=== PATIENT | male | born 1950 | race Two or more races ===

== ENCOUNTER 2022-09-20 17:08 | Inpatient (IN) | payer MEDICARE ==
[~2022-09-20] VITALS: Ht 157.5 cm; Wt 72.6 kg
[2022-09-20 18:11] LABS: BASOPHILS % (AUTO) 0.5 % (0.0-2.0); EOSINOPHILS % (AUTO) 1.7 % (0.0-6.0); HEMATOCRIT 40 % (39-51); HEMOGLOBIN 13.5 g/dL (13.5-17.5); LYMPHOCYTES # (AUTO) 2.7 K/uL (0.8-4.8); LYMPHOCYTES % (AUTO) 35.3 % (20.0-44.0); MEAN CORPUSCULAR HGB CONC 34 g/dl (31.0-36.0); MEAN CORPUSCULAR VOLUME 91 fL (80-96); MONOCYTES # (AUTO) 0.6 K/uL (0.1-1.30); MONOCYTES % (AUTO) 8.3 % (2.0-12.0); NEUTROPHILS # (AUTO) 4.2 K/uL (1.8-8.9); NEUTROPHILS % (AUTO) 54.2 % (43.0-81.0); PLATELET COUNT (AUTO) 156 K/uL (150-450); RED BLOOD CELL COUNT(AUTO) 4.41 MIL/uL (4.5-6.0); WHITE BLOOD COUNT (AUTO) 7.7 K/uL (4.3-11.0)
--- NOTE | 2022-09-20 18:15 | NUR ---
RECEVED PT 72 YRS MALE FROM HOME C/O SYNCOPY AND DIZZNESS AWAKE AND ALERT NO WEEKNESS NO NUBNESS RESTING AND COMFORTBLE AT THIS TIME
--- NOTE | 2022-09-20 18:30 | NUR ---
BLOOD DROW AND SENT TO LAB
--- NOTE | 2022-09-20 19:30 | NUR ---
HAND OFF NOHEMI KHOURY
[2022-09-20] MEDS ORDERED: ACETAMINOPHEN 325 MG TABLET PO PRN (20:30)
[2022-09-20] MEDS ORDERED: ONDANSETRON HCL/PF 4 MG/2 ML VIAL IVP PRN (20:30)
[2022-09-20 21:28] LABS: ALANINE AMINOTRANSFERASE 63 U/L (12-78); ALBUMIN 3.7 g/dL (3.4-5.0); ALKALINE PHOSPHATASE 54 U/L (46-116); ASPARTATE AMINOTRANSFERASE 45 U/L (15-37); BILIRUBIN,DIRECT 0.1 mg/dL (0.0-0.2); BILIRUBIN,TOTAL 0.4 mg/dL (0.2-1.0); CARBON DIOXIDE 25 mmol/L (21-32); CHLORIDE 104 mmol/L (98-107); CREATININE 0.8 mg/dL (0.6-1.3); GLUCOSE 137 mg/dL (74-106); POTASSIUM 3.9 mmol/L (3.5-5.1); SODIUM SERUM 141 mmol/L (136-145); TOTAL PROTEIN, SERUM 7.8 g/dL (6.4-8.2); UREA NITROGEN, BLOOD 23 mg/dL (7-18)
--- NOTE | 2022-09-20 21:43 | NUR ---
REPORT GIVEN TO CANDELARIA
--- NOTE | 2022-09-20 22:25 | NUR ---
COMPLIANCE PROGRAM MANAGER ADMITTING NOTE ADMITTED A 72 YO FEMALE PATIENT FROM EMERGENCY ROOM. RECEIVED REPORT FROM PORTFOLIO DIRECTOR. PT IS ADMITTED IN ROOM 310-2, WITH DX OF SYNCOPE. PT A/O X4, ABLE TO MAKE NEEDS KNOWN, LITHUANIAN SPEAKING. ON ROOM AIR, AND TOLERATING WELL. IV ACCESS TO LEFT AC #18G, IV INTACT, AND PATENT. BODY ASSESSMENT COMPLETED. PT HAS BRUISE TO LEFT FOOT LAST TOE DUE TO FALL AT HOME, AND DISCOLORATION TO LEFT LEG. PICTURES TAKEN, AND PLACED IN CHART. BELONGINGS CHECKED, AND BELONGING LIST SIGNED. SAFETY MEASURES INITIATED: BED LOCKED AND IN LOWEST POSITION, SIDE RAILS UP X2, HOB ELEVATED. CALL LIGHT IN EASY REACH FOR HELP. WILL CONTINUE TO MONITOR.
[2022-09-20 22:30] VITALS: BP 157/67
--- NOTE | 2022-09-20 22:34 | NUR ---
PT WAS TRANSFERRED TO 310 UNDER ACLS
[2022-09-20] MEDS ORDERED: GLIP5TAB13 PO (22:36)
[2022-09-20] MEDS ORDERED: LOSA25TA27 PO (22:36)
[2022-09-20] MEDS ORDERED: ATOR20TA PO (22:36)
[2022-09-20] MEDS ORDERED: METF-881 PO (22:36)
[2022-09-20 23:16] LABS: CALCIUM, SERUM 9.1 mg/dL (8.5-10.1)
[2022-09-20] MEDS: ENOXAPARIN SODIUM 40 MG/0.4 ML DISP.SYRIN SQ SCH (23:20)
[2022-09-20] MEDS: IV NS 0.9% 1,000 ML IV PRN (23:21)
[2022-09-21] VITALS (8 sets, daily range): BP systolic 129–141; BP diastolic 59–91
--- NOTE | 2022-09-21 06:40 | NUR ---
VISUAL C DEVELOPER CLOSING NOTE LEFT PATIENT SLEEPING IN BED. PT A/O X 4, ABLE TO MAKE NEEDS KNOWN. PATIENT IS ON RA, NO RESPIRATORY DISTRESS OR SOB NOTED. PT HAS IV ACCESS TO LAC, MIDLINE, #18G, WITH NS RUNNING AT 75 ML/HR, IV SITE PATENT AND INTACT, INFUSING WELL. SAFETY MEASURES IN PLACE: BED LOCKED IN LOWEST POSITION. CALL LIGHT AND TABLE IN EASY REACH. SIDE RAILS UP X2. BED ALARM ON. WILL PT TO AM SHIFT NURSE FOR LESLEE.
[2022-09-21 06:56] LABS: BASOPHILS % (AUTO) 0.6 % (0.0-2.0); EOSINOPHILS % (AUTO) 1.9 % (0.0-6.0); HEMATOCRIT 39 % (39-51); LYMPHOCYTES # (AUTO) 2.7 K/uL (0.8-4.8); MEAN CORPUSCULAR HGB CONC 33 g/dl (31.0-36.0); MEAN CORPUSCULAR VOLUME 93 fL (80-96); MONOCYTES # (AUTO) 0.6 K/uL (0.1-1.30); MONOCYTES % (AUTO) 8.4 % (2.0-12.0); NEUTROPHILS # (AUTO) 3.6 K/uL (1.8-8.9); NEUTROPHILS % (AUTO) 51.1 % (43.0-81.0); PLATELET COUNT (AUTO) 149 K/uL (150-450); RED BLOOD CELL COUNT(AUTO) 4.25 MIL/uL (4.5-6.0); WHITE BLOOD COUNT (AUTO) 7.1 K/uL (4.3-11.0)
[2022-09-21 07:09] LABS: CALCIUM, SERUM 8.8 mg/dL (8.5-10.1); CREATININE 0.7 mg/dL (0.6-1.3); MAGNESIUM 2.1 mg/dL (1.8-2.4); PHOSPHORUS 3.4 mg/dL (2.5-4.9); POTASSIUM 3.8 mmol/L (3.5-5.1)
--- NOTE | 2022-09-21 07:30 | NUR ---
AUTOMOTIVE PARTS COUNTER PERSON OPENING NOTE RECEIVED PATIENT SLEEPING IN BED. PT A/O X 4, ABLE TO MAKE NEEDS KNOWN. PATIENT IS ON RA, NO RESPIRATORY DISTRESS OR SOB NOTED. PT HAS IV ACCESS TO LAC, MIDLINE, #18G, WITH NS RUNNING AT 75 ML/HR, IV SITE PATENT AND INTACT, INFUSING WELL. SAFETY MEASURES IN PLACE: BED LOCKED IN LOWEST POSITION. CALL LIGHT AND TABLE IN EASY REACH. SIDE RAILS UP X2. BED ALARM ON. WILL ADMINISTER MEDS PRESCRIBED.
[2022-09-21] MEDS ORDERED: DEXTROSE 50%-WATER 50 ML DISP.SYRIN IV PRN (13:00)
[2022-09-21] MEDS: BLOOD SUGAR DIAGNOSTIC 1 EACH STRIP IN SCH ×2 (17:12→21:37)
[2022-09-21] MEDS: INSULIN REGULAR, HUMAN 100 UNIT/ML 3 ML VIAL SQ PRN ×2 (17:18→22:17)
[2022-09-21] MEDS: IV NS 0.9% 1,000 ML IV PRN (18:11)
--- NOTE | 2022-09-21 18:16 | NUR ---
MILK RUNNER CLOSING NOTE PATIENT RESTING IN BED, AWAKE. PT A/O X 4, ABLE TO MAKE NEEDS KNOWN. PATIENT IS ON RA, NO RESPIRATORY DISTRESS OR SOB NOTED. PT HAS IV ACCESS TO LAC, MIDLINE, #18G, WITH NS RUNNING AT 75 ML/HR, IV SITE PATENT AND INTACT, INFUSING WELL. AMBULATORY WITH BRP. SAFETY MEASURES IN PLACE: BED LOCKED IN LOWEST POSITION. CALL LIGHT AND TABLE IN EASY REACH. SIDE RAILS UP X2. BED ALARM ON. ALL SCHEDULED MEDS GIVEN ORDERED. WILL ENDORSE TO NEXT SHIFT.
--- NOTE | 2022-09-21 19:30 | NUR ---
MORTGAGE LOAN COUNSELOR NOTES RECEIVED LYING ON BED,A/O X3,SPEAK BARBADIAN,VISITOR AT BEDSIDE.PRESENT IVF NS AT 75ML/HR RATE INFUSING ON LEFT AC, VIA IV PUMP,SITE PATENT.[id number] ON TELE MONITOR.DENIES CHEST DISCOMFORTS.FALL PRECAUTION OBSERVED,BED ON LOWEST POSITION AND LOCKED,BED ALARM TRIGGERED,CALL LIGHT IN REACH,NEEDS ANTICIPATED.
[2022-09-21] MEDS: ENOXAPARIN SODIUM 40 MG/0.4 ML DISP.SYRIN SQ SCH (20:38)
[2022-09-21] MEDS: ATORVASTATIN 10 MG TABLET PO SCH (21:36)
[2022-09-22] VITALS (7 sets, daily range): BP systolic 115–145; BP diastolic 57–80
[2022-09-22] MEDS: BLOOD SUGAR DIAGNOSTIC 1 EACH STRIP IN SCH ×4 (05:58→21:17)
[2022-09-22] MEDS: INSULIN REGULAR, HUMAN 100 UNIT/ML 3 ML VIAL SQ PRN ×4 (05:59→21:19)
--- NOTE | 2022-09-22 06:00 | NUR ---
AUTO BODY CUSTOMIZER NOTES ACCU-CHECK BLOOD SUGAR CHECK 157MG/DL,COVERED WITH HUMULIN R 2 UNITS PER SLIDING SCALE.IVF INFUSING WELL ON LEFT AC SALINE LOCK VIA IV PUMP.
--- NOTE | 2022-09-22 06:17 | NUR ---
SHOP FOREMAN NOTES FAIRLY RESTED AT NIGHT,DENIES DISCOMFORTS THRU OUT SHIFT,IVF INFUSING WELL ON LEFT AC SALINE LOCK.AMBULATE WITH STEADY GAIT.IN NO ACUTE DISTRESS.WILL ENDORSE TO DAY NURSE FOR LESLEE.
--- NOTE | 2022-09-22 07:30 | NUR ---
RN opening NOTES RECEIVED KOREAN SPEAKING PT ON TELE MONITOR LYING ON BED,A/O X4,IV ACCESS L AC # 18 G PATENT . PT IS BREATHING FINE IN RA , NO DISCOMFORT, SOB, OR LABORED BREATHING NOTED. IV ACCESS ON LEFT AC, .DENIES CHEST DISCOMFORTS.MORNING ASSESSMENTS COMPLETED. LUNG, HEART , AND ABDOMINAL SOUNDS ARE NORMAL. FALL PRECAUTION OBSERVED,BED ON LOWEST POSITION AND LOCKED,BED ALARM TRIGGERED,CALL LIGHT IN REACH,NEEDS ANTICIPATED.
[2022-09-22] MEDS: LOSARTAN POTASSIUM 25 MG TABLET PO SCH (09:26)
[2022-09-22] MEDS ORDERED: LORAZEPAM INJ 2 MG/ML VIAL IV ONE (17:30)
--- NOTE | 2022-09-22 18:30 | NUR ---
RN closing note PT LYING ON BED,A/O X4, just came back from MRI. family at bed site. pt went to MRI and refused to do it because he was claustrophobic. he came back to floor and I contacted the MD, HE PRESCRIBED ATIVAN AND I ADMINISTERED THE PRESCRIBED DOSE TROUGH IV PUSH , PT BECAME RELAX AND WENT BACK TO MRI AND DID IT THIS TIME. IV ACCESS L AC # 18 G PATENT . PT IS BREATHING FINE IN RA , NO DISCOMFORT, SOB, OR LABORED BREATHING NOTED. PT DENIES CHEST DISCOMFORTS. FALL PRECAUTION OBSERVED,BED ON LOWEST POSITION AND LOCKED,BED ALARM TRIGGERED,CALL LIGHT IN REACH,NEEDS ANTICIPATED, MEDS ADMINISTERED. WILL ENDORSE TO NEXT SHIFT NURSE TO PROVIDE LESLEE.
--- NOTE | 2022-09-22 19:35 | NUR ---
RN OPENING NOTE PATIENT AWAKE IN BED W/ FAMILY AT BEDSIDE. A/OX4. NO S/S OF DISTRESS, BREATHING WITHOUT DISTRESS ON ROOM AIR. LAC #18 SL INTACT AND PATENT. TELE READS SB 53. SAFETY MEASURES IN PLACE: BED LOCKED AND AT LOWEST POSITION, RAILS UP X2, CALL ROSARIO WITHIN REACH, WILL CONTINUE TO MONITOR PATIENT.
[2022-09-22] MEDS: ATORVASTATIN 10 MG TABLET PO SCH (21:17)
[2022-09-22] MEDS: ENOXAPARIN SODIUM 40 MG/0.4 ML DISP.SYRIN SQ SCH (21:19)
[2022-09-23] VITALS: BP 122/66
[2022-09-23 04:00] VITALS: BP 122/70
[2022-09-23] MEDS: INSULIN REGULAR, HUMAN 100 UNIT/ML 3 ML VIAL SQ PRN (06:28)
[2022-09-23] MEDS: BLOOD SUGAR DIAGNOSTIC 1 EACH STRIP IN SCH (06:30)
--- NOTE | 2022-09-23 06:35 | NUR ---
RN CLOSING NOTE PATIENT ASLEEP IN BED. NO S/S OF DISTRESS, BREATHING WITHOUT DIFFICULTY ON ROOM AIR. LAC #18 INTACT AND PATENT; PATIENT ABLE AND WILLING TO HAVE PO FLUID INTAKE, AND IS DECLINING IVF AT THIS TIME. SAFETY MEASURES IN PLACE: BED LOCKED AND AT LOWEST POSITION, RAILS UP X2, CALL ROSARIO WITHIN REACH. WILL ENDORSE TO NEXT SHIFT FOR LESLEE. Addendum: 09/23/22 at 0638 by FAREED HENLEY RN TELE READS SB 58 W/ BBB
--- NOTE | 2022-09-23 07:30 | NUR ---
BLAST FURNACE SUPERVISOR OPENING NOTES RECEIVED PATIENT ON BED AWAKE AND A/O X4. ON ROOM AIR TOLERATING WELL. NO SOB NOTED. NOT IN DISTRESS. WITH NO COMPLAINTS OF PAIN OR DISCOMFORT AT THIS TIME. WITH IV ACCESS AT THE LEFT AC G18 SALINE LOCKED, PATENT AND INTACT. ON TELE MONITOR CURRENTLY READING SINUS BRADYCARDIA AT 58BPM WITH BBB. SAFETY MEASURES IN PLACED. CALL LIGHT WITHIN REACH. BED ON LOWEST LOCKED POSITION, SIDE RAILS UP X2. WILL CONTINUE TO MONITOR.
[2022-09-23 08:19] VITALS: BP 140/75
[2022-09-23] MEDS: LOSARTAN POTASSIUM 25 MG TABLET PO SCH (08:19)
--- NOTE | 2022-09-23 11:05 | NUR ---
CAR SALES REPRESENTATIVE NOTES PATIENT WAS ORDERED FOR DISCHARGE BY DR. LARA. PATIENT IS FOR DISCHARGE TO HOME. DISCHARGE AND MEDICATION INSTRUCTIONS WERE PROVIDED TO THE PATIENT. PATIENT VERBALIZED UNDERSTANDING. REMOVED IV LINE AND NAME WRIST BAND. ACCOMPANIED PATIENT TO THE [facility] WITH DAUGHTER IN STABLE CONDITION. MD AND CHARGE NURSE ARE AWARE OF THE DISCHARGE.
== END 2022-09-23 11:05 | disposition home or self-care (01) | DRG 309 ==
LOC: ER 17:08 → TELE 21:26
PROVIDERS: ADMIT Nurse Practitioner Acute Care; ATTEND Internal Medicine
DX: I49.9 Cardiac arrhythmia, unspecified (principal); I45.2 Bifascicular block; N17.9 Acute kidney failure, unspecified; E11.9 Type 2 diabetes mellitus without complications; I10 Essential (primary) hypertension; Z20.822 Contact with and (suspected) exposure to COVID-19; Z79.84 Long term (current) use of oral hypoglycemic drugs; Z79.899 Other long term (current) drug therapy
CPT/HCPCS: 36415; 70450-TC; 70551-TC; 71045-TC; 80048-TC; 80061-TC; 80076-TC; 82962-TC; 83735-TC; 84100-TC; 84484-TC; 85025-TC; 85730-TC; 87081-TC; 93307-TC; A4223; C9803; G0378; J1650; J1815; J2060; J7030